=== PATIENT | female | born 1955 | race Hispanic/Latino ===

== ENCOUNTER 2019-06-06 18:13 | Emergency (ER) | payer OTHER, SELFPAY ==
[2019-06-06 18:26] VITALS: BP 153/97; PULSE 88; RESP 16; TEMP 37.1; O2SAT 99
--- NOTE | 2019-06-06 18:40 | ED.GENADULT ---
HPI - General Adult General Chief complaint: Urogenital-Female Stated complaint: UTI Time Seen by Provider: 06/06/19 18:40 Source: patient Mode of arrival: ambulatory Limitations: no limitations History of Present Illness HPI narrative: 64-year-old female patient presents to the [facility] with complaints of vaginal itching and irritation for the past couple weeks. Patient states that recently she has been drinking more juice recently rather than water and did change some soaps that she has been using on the vagina. Patient states that she is sexually active but is in a monogamous relationship. Patient states that she does not have any concerns for any STDs. Patient denies any vaginal discharge. Patient states at times it does hurt and burning when she pees. Denies any abdominal pain, low back pain, nausea, vomiting or diarrhea. Patient states that they have tried [id number] vaginal cell and yeast infection remedies and they continue to have the same symptoms. Related Data Home Medications Medication Instructions Recorded Confirmed amlodipine 5 mg DAILY 06/06/19 06/06/19 hydrochlorothiazide 25 mg DAILY 06/06/19 06/06/19 Allergies Allergy/AdvReac Type Severity Reaction Status Date / Time No Known Allergies Allergy Verified 06/06/19 18:15 Review of Systems Review of Systems: Narrative: CONSTITUTIONAL: Denies fever, chills, or sweats. EYES: Denies visual changes, redness, or discharge. ENT: Denies rhinorrhea, congestion, sore throat, or otalgia. CARDIOVASCULAR: Denies chest pain, palpitations, or edema. RESPIRATORY: Denies cough or dyspnea. GASTROINTESTINAL: Denies abdominal pain, nausea, vomiting, or diarrhea. GENITOURINARY: Denies dysuria or hematuria. Positive burning with urination. Positive vaginal itching and irritation SKIN: Denies rash or itching. MUSCULOSKELETAL: Denies back pain, joint pain, or myalgia. NEUROLOGIC: Denies headache, numbness, or weakness. PSYCHIATRIC: Denies anxiety or depression. [facility] Social History Social History Gender identity (if verbalized by the patient): Female Comments At the time of my signature I agree with nursing past medical history, surgical, social, and family history. There is no relevant family history pertinent to the presenting complaint. Exam Narrative: Exam Narrative: GENERAL: Well-appearing, well-nourished, and in no acute distress. HEAD: Normocephalic, atraumatic. EYES: PERRLA and EOMI. ENT: Nares clear, no rhinorrhea or epistaxis. Mucous membranes moist. NECK: Supple. No lymphadenopathy CHEST: Clear to auscultation. No respiratory distress. HEART: Regular rate and rhythm. No murmur heard. Normal peripheral pulses. ABDOMEN: Soft, nontender, nondistended, normal active bowel sounds. No CVA tenderness on percussion. : Normal external female genitalia. OS is closed. No adnexal fullness or TTP. No CVA tenderness to percussion. There is some clear/cloudy discharge noted to the cervix area. There is no obvious evidence of a yeast infection that I can see at this time. EXTREMITIES: Normal range of motion. No edema. SKIN: Warm, dry, no rash. NEURO: No focal deficits. Alert and oriented x3. Course Vital Signs Vital signs: Vital Signs Temperature 37.1 C 06/06/19 18:26 Pulse Rate 88 06/06/19 18:26 Respiratory Rate 16 06/06/19 18:26 Blood Pressure 153/97 H 06/06/19 18:26 Pulse Oximetry 99 06/06/19 18:26 Temperature 37.1 C 06/06/19 18:26 Pulse Rate 88 06/06/19 18:26 Respiratory Rate 16 06/06/19 18:26 Blood Pressure 153/97 H 06/06/19 18:26 Pulse Oximetry 99 06/06/19 18:26 Vital signs reviewed. The patient has been informed that they may have pre-hypertension or Hypertension based on a BP reading in the department. I recommend that the patient call the primary care provider listed on their discharge instructions or a physician of their choice this week to arrange fol
== END 2019-06-06 19:08 | disposition home or self-care (01) ==
PROVIDERS: Emergency Provider Nurse Practitioner Family
DX: N76.0 Acute vaginitis (principal); I10 Essential (primary) hypertension
CPT/HCPCS: 81003; 87086; 87088; 99214; G0463

== ENCOUNTER 2020-12-28 19:05 | Emergency (ER) | payer OTHER, SELFPAY ==
--- NOTE | ~2020-12-28 | XR_ITS ---
EXAMINATION: XR chest 2V DATE: 12/28/2020 19:40 INDICATION: 2 weeks of productive cough TECHNIQUE: frontal and lateral views of the chest were obtained. COMPARISON: None FINDINGS: The lungs are clear with no focal airspace opacities, pulmonary edema, pleural effusion or pneumothor ax. Heart size is normal. Which is mildly atherosclerotic thoracic aorta. Mild thoracic spondylosis. 5 mm anterolisthesis in the lower lumbar spine likely L4 on L5. IMPRESSION: 1. No acute osseous abnormality. Reviewed, dictated and finalized at location A.
[2020-12-28 19:18] VITALS: BP 139/86; PULSE 96; RESP 16; TEMP 37.3; O2SAT 99
--- NOTE | 2020-12-28 19:51 | ED.URI ---
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 Patient reports, through family, a 2-week history of cough, nasal congestion and scratchy throat, associated loose stools. No fever, vomiting, loss of taste/smell, precordial chest pain, wheezing, shortness of breath. Symptoms are mild, worse somewhat positionally or perhaps at night and associated with some insomnia Related Data Home Medications Medication Instructions Recorded Confirmed hydrochlorothiazide 25 mg DAILY 06/06/19 06/06/19 amlodipine 12/28/20 lisinopril 12/28/20 paroxetine HCl mg PO 12/28/20 Allergies Allergy/AdvReac Type Severity Reaction Status Date / Time No Known Allergies Allergy Verified 06/06/19 18:15 Review of Systems Review of Systems: General/Constitutional: No weight loss,fever Eyes: N0: Redness,discharge Ears/Nose/Throat: No: Epistaxis,ear discharge Respiratory: Denies: Hemoptysis Gastrointestinal: No Vomiting, Bleeding-rectal Skin: No Lumps, eruption Neurologic: No Focal Weakness,Sz Hematologic: Denies: Petechiae/Purpura Psychiatric: No: Suicida ideationl All Other Systems: Reviewed and Negative PMFSH Social History Social History Gender identity (if verbalized by the patient): Female Comments At time of signature, agree with nursing past medical, surgical, social and family history. There is no relevant family history pertinent to the presenting complaint Exam Narrative: General Appearance: Well appearing, Well nourished EYE: PERRLA, Conjunctiva clear Ears: Auditory canal normal, TM normal Nose: Rhinorrhea, Mucousal erythema Mouth/Throat: MM moist, Uvula midline, Pharyngeal erythema Neck: Supple, No adenopathy Respiratory: No respiratory distress, Breath sounds equal, Clear to auscultation Cardiovascular: RRR, No JVD Musculoskeletal: Non tender, Normal strength Skin: Warm, Dry Neurological: A&O x3, CN II-XII intact Psychiatric: Normal mood, Normal affect Course Course Emergency Course: Films visualized, interpreted by radiologist, agree, normal see report Vital Signs Vital signs: Vital Signs Temperature 99.1 F 12/28/20 19:18 Pulse Rate 96 12/28/20 19:18 Respiratory Rate 16 12/28/20 19:18 Blood Pressure 139/86 12/28/20 19:18 Pulse Oximetry 99 12/28/20 19:18 Temperature 99.1 F 12/28/20 19:18 Pulse Rate 96 12/28/20 19:18 Respiratory Rate 16 12/28/20 19:18 Blood Pressure 139/86 12/28/20 19:18 Pulse Oximetry 99 12/28/20 19:18 Discharge Plan Discharge Clinical Impression: Bronchitis Patient Disposition: Home, Self-Care Condition: Stable Instructions: Acute Bronchitis (ED) Prescriptions: New benzonatate [Tessalon Perles] 100 mg capsule 100 mg PO TID Qty: 20 RF: 1 azithromycin 250 mg tablet See Rx Instructions .ROUTE .COMPLEX Qty: 6 RF: 0 trazodone 50 mg tablet 25 - 50 mg PO HS PRN (Reason: insomnia) Qty: 20 RF: 1 codeine-guaifenesin 10-100 mg/5 mL liquid 7.5 ml PO Q6H PRN (Reason: cough) Qty: 118 RF: 0 No Action paroxetine HCl 10 mg tablet PO RF: 0 amlodipine 5 mg tablet RF: 0 lisinopril 40 mg tablet RF: 0 hydrochlorothiazide 25 mg tablet 25 mg DAILY RF: 0 Follow-up/Referrals: UNKNOWN,DOCTOR [Primary Care Provider] -
== END 2020-12-28 20:23 | disposition home or self-care (01) ==
PROVIDERS: Emergency Provider Emergency Medicine
DX: J40 Bronchitis, not specified as acute or chronic (principal); I10 Essential (primary) hypertension; Z85.9 Personal history of malignant neoplasm, unspecified; F32.9 Major depressive disorder, single episode, unspecified
CPT/HCPCS: 71046; 99213; G0463

== ENCOUNTER 2024-06-04 17:44 | Emergency (ER) | payer MEDICARE, MEDICAID, SELFPAY ==
--- NOTE | 2024-06-04 17:48 | ED.URI ---
HPI - URI/Sore Throat General Chief Complaint: Upper Respiratory Infection Stated Complaint: cough,chest congestion Time Seen by Provider: 06/04/24 17:48 Source: patient Mode of arrival: ambulatory Limitations: no limitations History of Present Illness HPI Narrative: Bouchra is a 61-year-old female patient presenting to the clinic today with complaints of cough and chest congestion x 3 weeks. She reports no fevers, chills, body aches. Is coughing up and blowing out yellow nasal drainage. Denies any chest pain or shortness of breath. Does have a lot of sinus pressure. MD elicited complaint: cough, rhinorrhea, nasal congestion and sinus pain Related Data Allergies Allergy/AdvReac Type Severity Reaction Status Date / Time No Known Allergies Allergy Verified 06/04/24 17:48 Review of Systems Review of Systems: Pertinent positives per HPI. Patient denies any fever, chills, rash, headache, visual changes, dizziness, shortness of breath, chest pain, palpitations, nausea, vomiting, diarrhea, constipation, abdominal pain, or any urinary issues. PMFSH Social History Social History Gender identity (if verbalized by the patient): Female Comments At the time of my signature, I reviewed and agree with the nursing past medical, surgical, social, and family history. There is no relevant family history pertinent to the patient complaint. Exam Narrative: General: Well-developed, well nourished, in no apparent distress Head: Normocephalic, atraumatic Eyes: Pupils equally round and reactive to light bilaterally, EOM intact, sclera and conjunctive clear, no discharge, lids normal Ears: TMs intact and congested, ear canals clear, no drainage, grossly hearing normal. Nose: Nares patent, yellow nasal discharge, moderate inflammation, frontal and maxillary sinus tenderness. Mouth: Oral pharynx without lesions or masses, good dentition, MMM. Postnasal drip Neck: Supple, trachea midline, no enlargement of anterior or posterior cervical nodes, no thyroid masses or goiter palpable. Cardio: Regular rate and rhythm, s1 and s2 normal, no murmur appreciated. Resp: Lung sounds diminished in the bases, no rhonchi, rales, wheezing or rubs Course Course Emergency Course: Portions of this record may have been created with voice recognition software. Level of Care: Express Care Visit Vital Signs Vital signs: Vital Signs Temperature 36.6 C 06/04/24 17:55 Pulse Rate 80 06/04/24 17:55 Respiratory Rate 16 06/04/24 17:55 Blood Pressure 175/89 H 06/04/24 17:55 Pulse Oximetry 98 06/04/24 17:55 Oxygen Delivery Room Air 06/04/24 17:55 Temperature 36.6 C 06/04/24 17:55 Pulse Rate 80 06/04/24 17:55 Respiratory Rate 16 06/04/24 17:55 Blood Pressure 175/89 H 06/04/24 17:55 Pulse Oximetry 98 06/04/24 17:55 Oxygen Delivery Room Air 06/04/24 17:55 Vital signs reviewed MDM - URI/Sore Throat MDM Narrative Medical decision making narrative: At the time of visit patient is resting comfortably on the exam table. Patient appears to be nontoxic. Plan: I suspect patient has sinusitis/bronchitis. Prescription for Augmentin, prednisone, Tessalon Perles was sent to the pharmacy. Supportive measures were discussed with the patient and they voiced understanding discharge instructions and agrees to treatment plan. Return precautions reviewed Differential Diagnosis Differential diagnosis: Likely upper respiratory infection, otitis media, sinusitis, viral infection, bronchitis, influenza, pharyngitis and other (COVID) Discharge Plan Discharge Clinical Impression: Sinobronchitis Patient Disposition: Home, Self-Care Condition: Stable Instructions: Antibiotic Form, Acute Bronchitis (ED), Rhinosinusitis (ED) Additional Instructions: [place] los medicamentos recetados s?lo seg?n lo prescrito: prednisona, Augmentin y Tessalon Perles. Puede ada Mucinex para la tos paige el d?a y perlas tesalon por la noche. Aumente los l?quidos y mant?ngase ivon hidratado. Tylenol/motrin para el dolor/fiebre Flonase y antihistam?nicos de venta nevaeh seg?n las indicaciones Vicks vapor frot para abrir los senos nasales Enjuagues sinusales para la congesti?n Cepacol spray, pastillas para la tos, pastillas para la garganta, t? caliente con miel/orellana?n, g?rgaras con agua salada para calmar la garganta Dieta BRAT para la diarrea L?quidos huma x 24 horas y luego avanzar seg?n la tolerancia para n?useas/v?mitos Vaya al servicio de urgencias si zuñiga afecci?n empeora: fiebre karyn que no se controla con Tylenol o Motrin, deshidrataci?n, debilidad, letargo, dificultad para respirar o dolor en el pecho. Sandi un seguimiento con zuñiga PCP en 3 a 5 d?as si los s?ntomas persisten. Patient Language: Indonesian Prescriptions: New benzonatate 200 mg capsule 200 mg PO TID 7 Days Qty: 21 0RF albuterol sulfate 90 mcg/actuation HFA aerosol inhaler 2 puff inhalation Q4-6H PRN (Reason: shortness of breath or wheezing) 30 Days Qty: 8.5 0RF amoxicillin-pot clavulanate 875-125 mg tablet 1 tablet PO Q12H 10 Days Qty: 20 0RF Follow-up/Referrals: Scott,DINO Osorio [Primary Care Provider] - Time of Disposition: 18:00 Quality NIHSS Nursing Documentation ED NIHSS nursing documentation: reviewed/agree
[2024-06-04 17:55] VITALS: BP 175/89; PULSE 80; RESP 16; TEMP 36.6; O2SAT 98
== END 2024-06-04 18:06 | disposition home or self-care (01) ==
PROVIDERS: Emergency Provider Nurse Practitioner Family; PCP Physician Assistant Medical
DX: J32.9 Chronic sinusitis, unspecified (principal); J40 Bronchitis, not specified as acute or chronic
CPT/HCPCS: 99213; G0463